=== PATIENT | female | born 1965 | race Caucasian/White ===

== ENCOUNTER 2018-07-22 23:06 | Inpatient (IN) ==
[2018-07-23] MEDS ORDERED: Sod Chloride 0.9% Inj 1,000 ML IV.SIG ONE (05:51)
--- NOTE | 2018-07-23 05:51 | ED ---
HPI General Chief Complaint: Abdominal Pain Stated Complaint: ABD pain/NV blood Time Seen by Provider: 07/23/18 05:51 Source: patient Mode of arrival: ambulatory Limitations: no limitations History of Present Illness HPI narrative: 53-year-old female presents to the emergency department for complaint of abdominal pain with nausea vomiting since evening. Patient is visiting from out of town and states that she thinks she may have eaten some bad seafood. Patient states symptoms has persisted. Patient has not had any coffee-ground emesis but after drinking red Gatorade is concerned she may have had some blood in her emesis. Patient has had normal bowel movements without diarrhea hematochezia or melena. Patient is noted some urinary frequency and urgency and discomfort with urination. No flank pain. Subjective fever and chills. Patient states due to persistent vomiting decided to come to the emergency room for evaluation. Patient denies previous abdominal surgery but has had tubal ligation in the past. Patient denies known history of colitis inflammatory bowel disease Crohn's or diverticulosis/ diverticulitis. No other persons on trip with the patient similarly ill. MD complaint: abdominal pain Onset (ago): day(s) Pain Consistency: constant Location: periumbilical, LLQ and RLQ Severity: severe Severity scale (1-10): 7 Quality: cramping, aching and fullness Radiation: LLQ and RLQ Migration to: no migration Relieving factors: nothing Exacerbating factors: nothing Context: possible food poisoning Associated symptoms: nausea, vomiting, fever and chills Treatments prior to arrival: other (leftover antibiotic doxycycline) Related Data Patient : No Home Medications Medication Instructions Recorded Confirmed ezetimibe [Zetia] 10 mg PO DAILY 07/23/18 07/23/18 Allergies Allergy/AdvReac Type Severity Reaction Status Date / Time prednisolone Allergy Anaphylaxis Verified 07/23/18 00:41 procaine [From Novocain] Allergy Hives Verified 07/23/18 00:41 Sulfa (Sulfonamide Allergy Vomiting Verified 07/23/18 00:41 Antibiotics) Review of Systems ROS: all other systems reviewed are negative PMFSH History History Provided By: Patient (Dyslipidemia tubal ligation) Medical History Medical History Hyperlipidemia (Acute) Social History Social History Substance History: No History of Abuse Second Hand Smoke Exposure: No Smoking Status: Never smoker How Often Do You Have a Drink Containing Alcohol: Monthly or less [facility] within the Last 8 Weeks: No Recent Out of Country Travel within the Last 8 Weeks: No Exam Narrative Exam Narrative: GENERAL: Well-nourished, well-developed patient. SKIN: Focused skin assessment warm/dry. HEAD: Normocephalic. EYES: No scleral icterus. No injection or drainage. NECK: Supple, trachea midline. No JVD or lymphadenopathy. CARDIOVASCULAR: Regular rate and rhythm without murmurs, gallops, or rubs. RESPIRATORY: Breath sounds equal bilaterally. No accessory muscle use. GASTROINTESTINAL: Abdomen soft, bilateral lower quadrant tenderness mild periumbilical tenderness no guarding or rebound, nondistended. MUSCULOSKELETAL: No cyanosis, or edema. BACK: Nontender without obvious deformity. No CVA tenderness. Course Reevaluation(s) Reevaluation #1: Patient updated and agrees to repeat CT and evaluation by surgeon. Consultations Consultation #1: dr padilla requests oral contrast ct and will evaluate patient dr padilla states to admit to him after reviewing repeat ct and will place orders with antibiotic Initial Documented Vital Signs Temperature 99.6 F 07/23/18 00:37 Pulse Rate 101 H 07/23/18 00:37 Respiratory Rate 20 07/23/18 00:37 Blood Pressure 121/60 07/23/18 00:37 Pulse Oximetry 99 07/23/18 00:37 Last Documented Vital Signs Temperature 99.6 F 07/23/18 00:37 Pulse Rate 100 H 07/23/18 07:18 Respiratory Rate 18 07/23/18 07:18 Blood Pressure 145/61 H 07/23/18 07:18 Pulse Oximetry 99 07/23/18 07:19 Sign Out Sign Out Data: Patient Sign Out occurred on 07/23/18 at 07:33. Patient's care was discussed, and care was transferred from Johanny Weller MD to Yeimi Navarro MD. Sign Out Comment: 53-year-old female who has been ill since with nausea multiple episodes of vomiting dehydration and lower abdominal pain. Patient states she has history of intestinal issues and since eating seafood on has not felt well has had subjective fever and chills denies diarrhea or explosive mucoid bloody stools. Patient was taking doxycycline 2 weeks ago for a toe infection and did take a dose of leftover doxycycline on evening. Care will be signed over to oncoming physician for follow-up of pending labs imaging studies and disposition. Last updated by Johanny Weller MD at 07/23/18 07:05 Post-Handoff Eval: signed over to me to follow workup and reevaluate. CT shows possible appendicitis. Patient is tender all over but most in right lower quadrant. Will discuss with general surgery Medical Decision Making MDM Narrative Medical decision making narrative: 53-year-old female with 2 days of abdominal pain nausea vomiting and dysuria with subjective fever and chills; patient patient on anesthesia technician IV access obtained specimens collected and sent for resulting patient administered Zofran and IV fluids At 705 care signed over to oncoming physician Dr. Navarro Medical Screen Exam Complete: Yes Emergency Medical Condition: Yes Differential Diagnosis Differential Diagnosis: Abdominal pain gastritis peptic ulcer disease cholecystitis pancreatitis appendicitis diverticulitis colitis gastroenteritis Medical Records Medical records reviewed: Yes I reviewed the patient's medical records. none Lab Data Lab results reviewed: Yes I reviewed the patient's lab results. Result diagrams: 07/23/18 07:05 07/23/18 07:05 Lab Results 07/23/18 07/23/18 07/23/18 Range/Units 07:05 07:05 08:00 WBC 11.4 H (4.0-11.0) th/mm3 RBC 4.49 (4.00-5.30) mil/mm3 Hgb 13.2 (11.6-15.3) gm/dL Hct 39.4 (35.0-46.0) % MCV 87.8 (80.0-100.0) fL MCH 29.3 (27.0-34.0) pg MCHC 33.4 (32.0-36.0) % RDW 13.3 (11.6-17.2) % Plt Count 204 (150-450) th/mm3 MPV 8.0 (7.0-11.0) fL Neut % (Auto) 88.1 H (16.0-70.0) % Lymph % (Auto) 7.4 L (9.0-44.0) % Gentry % (Auto) 4.3 (0.0-8.0) % Eos % (Auto) 0.0 (0.0-4.0) % Baso % (Auto) 0.2 (0.0-2.0) % Neut # (Auto) 10.1 H (1.8-7.7) th/mm3 Lymph # (Auto) 0.9 L (1.0-4.8) th/mm3 Gentry # (Auto) 0.5 (0.0-0.9) th/mm3 Eos # (Auto) 0.0 (0.0-0.4) th/mm3 Baso # (Auto) 0.0 (0.0-0.2) th/mm3 WBC Differential . Differential Comment Auto diff final Sodium 139 (136-145) meq/L Potassium 3.8 (3.5-5.1) meq/L Chloride 105 (98-107) meq/L Carbon Dioxide 25.2 (21.0-32.0) meq/L Anion Gap 9 (5-15) meq/L BUN 12 (7-18) mg/dL Creatinine 0.79 (0.50-1.00) mg/dL Estimated GFR 76 L (>89) mL/min Random Glucose 123 H (74-106) mg/dL Calcium 8.8 (8.5-10.1) mg/dL Total Bilirubin 0.6 (0.2-1.0) mg/dL AST 19 (15-37) U/L ALT 37 (10-53) U/L Alkaline Phosphatase 60 (45-117) U/L Total Protein 7.7 (6.4-8.2) g/dL Albumin 3.9 (3.4-5.0) g/dL Lipase 61 L (73-393) U/L Urine Color Yellow (Yellw/Straw) Urine Clarity Hazy H (Clear) Urine pH 5.0 (5.0-8.5) Ur Specific Elaine 1.026 (1.002-1.035) Urine Protein Negative (Neg-Trace) mg/dL Urine Glucose (UA) Negative (Negative) mg/dL Urine Ketones Trace H (Negative) mg/dL Urine Occult Blood Small H (Negative) Urine Nitrate Negative (Negative) Urine Bilirubin Negative (Negative) Urine Urobilinogen Less than 2 (Less than 2) mg/dL Ur Leukocyte Esterase Trace H (Negative) Urine RBC 3 (0-3) /hpf Urine WBC 5 (0-5) /hpf Ur Squamous Epith Cells 1 (0-5) /hpf Urine Bacteria Occasional H (None) /hpf Hyaline Casts 1 (0-3) /lpf Urine Mucus Many H (Occasional) /lpf Micro UA Comment Culture not ind Ur Microscopic Review Not Reportable Urine Culture Comments Culture not ind Imaging Data Attestation: I personally reviewed and interpreted this imaging study as follows : Radiologist's impression: Abdomen/Pelvis CT 07/23/18 05:51 CONCLUSION: 1. There are some inflammatory changes and wall thickening within small bowel loops in the pelvis. This could be enteritis 2. Tubular structure in the right lower quadrant believed to be the appendix is somewhat prominent in size but does contain air. This is indeterminate for appendicitis. 3. Hepatic low densities, likely benign. Chest X-Ray 07/23/18 05:51 CONCLUSION: No acute cardiopulmonary disease. Abdomen/Pelvis CT 07/23/18 09:26 CONCLUSION: 1. Inflammatory changes with prominent appendix suggesting the possibility of acute appendicitis. There may be extraluminal air suggesting perforation. No fluid collection or abscess. 2. Wall thickening involving adjacent small bowel loops likely inflammatory. Discharge Plan Discharge Disposition Patient Disposition: 30 Still Patient Discharge Condition Condition: Stable Discharge Details Diagnosis: Acute appendicitis Physicians Team ED Provider: Yeimi Navarro Primary Care Provider: UNKNOWN, Rxs /Orders / Referrals /Forms Prescriptions: No Action ezetimibe [Zetia] 10 mg Tablet 10 mg PO DAILY RF: 0 Discharge Interventions Interventions: Vital Signs Last Done: 07/23/18 07:18 Status ED Status: Admitted Patient
[2018-07-23 07:25] LABS: Baso % (Auto) 0.2 % (0.0-2.0); Hematocrit 39.4 % (35.0-46.0); Hemoglobin 13.2 gm/dL (11.6-15.3); Lymph # (Auto) 0.9 th/mm3 (1.0-4.8); Lymph % (Auto) 7.4 % (9.0-44.0); Mean Corpuscular HGB Conc 33.4 % (32.0-36.0); Mean Corpuscular Hemoglobin 29.3 pg (27.0-34.0); Mean Corpuscular Volume 87.8 fL (80.0-100.0); Mono # (Auto) 0.5 th/mm3 (0.0-0.9); Mono % (Auto) 4.3 % (0.0-8.0); Neut # (Auto) 10.1 th/mm3 (1.8-7.7); Neut % (Auto) 88.1 % (16.0-70.0); Platelet Count 204 th/mm3 (150-450); Red Blood Count 4.49 mil/mm3 (4.00-5.30); Red Cell Distribution Width 13.3 % (11.6-17.2); White Blood Count 11.4 th/mm3 (4.0-11.0)
[2018-07-23 07:44] LABS: Alanine Aminotransferase 37 U/L (10-53); Albumin 3.9 g/dL (3.4-5.0); Anion Gap 9 meq/L (5-15); Aspartate Aminotransferase 19 U/L (15-37); Blood Urea Nitrogen 12 mg/dL (7-18); Calcium 8.8 mg/dL (8.5-10.1); Carbon Dioxide 25.2 meq/L (21.0-32.0); Chloride 105 meq/L (98-107); Glomerular Filtration Rate 76 mL/min (>89); Glucose,Random 123 mg/dL (74-106); Lipase 61 U/L (73-393); Potassium 3.8 meq/L (3.5-5.1); Sodium 139 meq/L (136-145)
--- NOTE | 2018-07-23 07:44 | XR ---
EXAM DATE: 07/23/2018 7:41 AM EDT AGE/SEX: 53 years / Female INDICATIONS: Lower chest, upper abdomen pain. Nausea and vomiting for the past two days. CLINICAL DATA: This is the patient's initial encounter. Patient reports that signs and symptoms have been present for 2 days and indicates a pain score of 10/10. MEDICAL/SURGICAL HISTORY: Hypercholesterolemia. None. COMPARISON: No prior exams available for comparison. FINDINGS: A single AP view of the chest demonstrates the lungs to be symmetrically aerated without evidence of mass, infiltrate or effusion. The cardiomediastinal contours are unremarkable. Osseous structures a re intact. CONCLUSION: No acute cardiopulmonary disease. Electronically signed by: Rubén Cruz MD 07/23/2018 7:43 AM EDT
[2018-07-23 07:47] LABS: Alkaline Phosphatase 60 U/L (45-117); Total Protein 7.7 g/dL (6.4-8.2)
[2018-07-23 08:28] LABS: Bacteria,Urine Occasional /hpf; Bilirubin,Urine Negative (Negative); Color,Urine Yellow (Yellw/Straw); Glucose,Urine (UA) Negative (Negative); Hyaline Casts,Urine 1 /lpf (0-3); Leukocyte Esterase,Urine Trace (Negative); Mucus,Urine Many /lpf (Occasional); Nitrite,Urine Negative (Negative); Specific Gravity,Urine 1.026 (1.002-1.035); Squamous Epithelial Cell,Urine 1 /hpf (0-5)
[2018-07-23 08:29] LABS: Clarity,Urine Hazy (Clear)
--- NOTE | 2018-07-23 08:43 | CT ---
EXAM DATE: 07/23/2018 8:27 AM EDT AGE/SEX: 53 years / Female INDICATIONS: Lower abdomen pain with nausea and vomiting for 2 days CLINICAL DATA: This is the patient's initial encounter. Patient reports that signs and symptoms have been present for 2 days and indicates a pain score of 8/10. MEDICAL/SURGICAL HISTORY: None. Tubal ligation. ORAL CONTRAST: No oral contrast ingested. RADIATION DOSE: 7.35 CTDI (mGy) COMPARISON: No prior exams available for comparison. TECHNIQUE: Multiple contiguous axial images were obtained through the abdomen and pelvis following b olus infusion of 97 ml Omnipaque 350 (iohexol) nonionic water-soluble contrast as a single exam dos e. No oral contrast ingested. Using automated exposure control and adjustment of the mA and/or kV ac cording to patient size, radiation dose was kept as low as reasonably achievable to obtain optimal di agnostic quality images. DICOM format image data is available electronically for review and comparis on. FINDINGS: Lower Lungs: The lung bases are clear Liver: The liver has a homogeneous density with 1.7 cm low-density lesion in the right lobe the liver . Smaller low-density lesion also seen. There is no dilation of the biliary tree. Spleen: Homogeneous density without enlargement. Pancreas: Unremarkable without mass or calcification. Kidneys: Normal in size and shape. No evidence of mass or hydronephrosis. Adrenal Glands: Unremarkable. Aorta: The aorta and proximal iliac vessels are grossly unremarkable without aneurysmal dilation. Bowel/Mesentery: Lack of oral contrast limits evaluation. Tubular structure in the right lower quadr ant believed to be the appendix is somewhat prominent in size but does contain air. The diameter is 1 1 mm. There are some inflammatory changes in the pelvis and wall thickening within adjacent small bow el loops. Abdominal Wall: Intact. Retroperitoneum: No evidence of adenopathy in the retrocrural, para-aortic, or deep pelvic regions. Bladder: Contours are smooth. Reproductive Organs: No abnormal masses or calcifications seen. Trace pelvic free fluid. Inguinal: The inguinal region is unremarkable without evidence of adenopathy. Bony Structures: Unremarkable. CONCLUSION: 1. There are some inflammatory changes and wall thickening within small bowel loops in the pelvis. T his could be enteritis 2. Tubular structure in the right lower quadrant believed to be the appendix is somewhat prominent i n size but does contain air. This is indeterminate for appendicitis. 3. Hepatic low densities, likely benign. Electronically signed by: Rubén Cruz MD 07/23/2018 8:42 AM EDT
[2018-07-23] MEDS ORDERED: Diatrizoate Meglum/Diatrizoate Sod Liq 9 ML UDC PO ONE (09:45)
[2018-07-23] MEDS ORDERED: Phenylephrine/NS 1000 MCG/10ML Syringe IV.PUSH ONE (12:00)
[2018-07-23] MEDS ORDERED: Glycopyrrolate Inj 1 MG/5 ML Syringe IV.PUSH ONE (12:00)
[2018-07-23] MEDS ORDERED: Neostigmine Inj 5 MG/5 ML Syringe IV.PUSH ONE (12:00)
[2018-07-23] MEDS ORDERED: Lidocaine PF 1% Inj 5 ML Syringe INFILTRATN ONE (12:00)
--- NOTE | 2018-07-23 12:39 | CT ---
EXAM DATE: 07/23/2018 12:31 PM EDT AGE/SEX: 53 years / Female INDICATIONS: Lower abdomen pain with nausea and vomiting for 2 days CLINICAL DATA: This is the patient's subsequent encounter. Patient reports that signs and symptoms h ave been present for 2 days and indicates a pain score of 8/10. MEDICAL/SURGICAL HISTORY: None. Tubal ligation. RADIATION DOSE: 8.56 CTDI (mGy) [place] [facility] [place]AST, 07/23/2018. . TECHNIQUE: Multiple contiguous axial images were obtained through the abdomen. Images were obtained using multiple row detector helical technique. Using automated exposure control and adjustment of the mA and/or kV according to patient size, radiation dose was kept as low as reasonably achievable to o btain optimal diagnostic quality images. DICOM format image data is available electronically for rev iew and comparison. FINDINGS: Lower Lungs: The visualized lower lungs are clear. Liver: The liver has a homogeneous density without space-occupying lesion. There is no dilation of th e biliary tree. Spleen: Homogeneous density without enlargement. Pancreas: Unremarkable without mass or calcification. Kidneys: Normal in size and shape. No evidence of mass or hydronephrosis. Adrenal Glands: Unremarkable. Aorta: The aorta and proximal iliac vessels are grossly unremarkable without aneurysmal dilation. Bowel/Mesentery: There are inflammatory changes in the right lower quadrant. The appendix is promine nt measuring 12 mm. Minimal air noted. There also appears to be some extraluminal air suggesting the possibility of perforation. There is wall thickening of adjacent ileal bowel loops. There is contrast within the stomach and small bowel. Abdominal Wall: Intact. Retroperitoneum: No evidence of adenopathy in the retrocrural, para-aortic, or deep pelvic regions. Bladder: Contours are smooth. Reproductive Organs: No abnormal masses or calcifications seen. Inguinal: The inguinal region is unremarkable without evidence of adenopathy. Bony Structures: Unremarkable. CONCLUSION: 1. Inflammatory changes with prominent appendix suggesting the possibility of acute appendicitis. Th ere may be extraluminal air suggesting perforation. No fluid collection or abscess. 2. Wall thickening involving adjacent small bowel loops likely inflammatory. Electronically signed by: Rubén Cruz MD 07/23/2018 12:38 PM EDT
[2018-07-23] MEDS: Ketorolac Inj 30 MG/ML (IVP) Vial IV.PUSH PRN ×2 (13:10→20:30)
[2018-07-23] MEDS: Piperacil/Tazo 3.375 GM Premix 50 ML IV.SIG SCH ×2 (14:58→22:41)
--- NOTE | 2018-07-23 15:04 | P.HPGS ---
History of Present Illness Service: General Surgery Primary Care Physician: UNKNOWN History of Present Illness: 53 yo F developed mild abdominal pain two days ago associated with nausea. Yesterday the pain progressed inseverity and she developed emesis. Last night she presented to the ED. She has had chills. pain is primarily in the lower abdomen. WBC is 11,000. CT a/p with IV no oral contrast showed dilated appendix and thickened small bowel loops. I requested oral contrasted CT. This was reviewed by me with DR. Cruz and appears to likely be appendicitis possibly with microperforation. The patient has nausea with many medications and requests as little narcotics as possible. PSH includes unilateral salpingectomy due to ectopic . - Diagnosis (1) Acute appendicitis Inpatient Certification: I certify that the inpatient services were ordered in accordance with Medicare regulations governing the order. This includes certification that hospital inpatient services are reasonable and necessary and in the case of services not specified as inpatient-only under 42 CFR 419.22(n), that they are appropriately provided as inpatient services in accordance to with the 2-midnight benchmark under 43 CFR 412.3(e) Estimated Total Length of Stay (Days): 2 Plans for Post Hospital Care: Home Review of Systems All other systems reviewed negative except as stated in HPI PMFSH - History History Provided By: Patient (Dyslipidemia tubal ligation) - Medical History Medical History: Medical History (Last Updated 07/23/18 @ 00:39 by Brent Mclaughlin) Hyperlipidemia - Tobacco History Second Hand Smoke Exposure: No Smoking Status: Never smoker - Alcohol History How Often Do You Have a Drink Containing Alcohol: Monthly or less - Substance Use History Substance History: No History of Abuse - Travel History Recent Travel in the [place] Within the Last 8 Weeks: No Recent Travel Out of the Country Within the Last 8 Weeks: No - Immunization History Tetanus Immunization: <5 Years Hx Influenza Vaccine This Season: No Medications and Allergies Active Medications: Active Medications Lactated Ringer's (Lr 1000 Ml Inj) 1,000 mls @ 125 mls/hr IV.CONT .Q8H JERMAINE Last Admin: 07/23/18 14:42 Dose: 125 mls/hr Piperacillin/Tazobactam/Dextrose (Zosyn 3.375 Gm Premix) 50 mls @ 100 mls/hr IV.SIG Q6H JERMAINE Ketorolac Tromethamine (Toradol Inj) 30 mg IV.PUSH Q6H PRN PRN Reason: Pain 1-10 Stop: 07/28/18 12:52 Last Admin: 07/23/18 13:10 Dose: 30 mg Sodium Chloride (Ns Flush) 2 ml IV.FLUSH PRN PRN PRN Reason: FLUSH AFTER USING IV ACCESS Last Admin: 07/23/18 09:59 Dose: 2 ml Sodium Chloride (Ns Flush) 2 ml IV.FLUSH BID JERMAINE Sodium Chloride (Ns Flush) 2 ml IV.FLUSH PRN PRN PRN Reason: FLUSH AFTER USING IV ACCESS Allergies Allergy/AdvReac Type Severity Reaction Status Date / Time prednisolone Allergy Anaphylaxis Verified 07/23/18 00:41 procaine [From Novocain] Allergy Hives Verified 07/23/18 00:41 Sulfa (Sulfonamide Allergy Vomiting Verified 07/23/18 00:41 Antibiotics) Home Medications Medication Instructions Recorded Confirmed Type ezetimibe [Zetia] 10 mg PO DAILY 07/23/18 07/23/18 History Exam Vital signs: Vital Signs 07/23/18 00:37 07/23/18 07:18 07/23/18 07:19 Temperature 99.6 F Pulse Rate 101 H 100 H Respiratory Rate 20 18 Blood Pressure 121/60 145/61 H Pulse Oximetry 99 99 99 07/23/18 12:53 Temperature Pulse Rate 102 H Respiratory Rate 16 Blood Pressure 130/62 Pulse Oximetry 98 Intake & Output 07/22/18 07/23/18 07/23/18 18:59 06:59 18:59 Intake Total 1000 / 1000 Balance 1000 / 1000 Weight 72.575 kg Intake: IV 1000 / 1000 NS Inj 1,000 ML @ Wide Open IV. 1000 / 1000 SIG BOLUS ONE Rx#:[id number] Narrative: GENERAL: Awake and alert. No acute distress. Cooperative. HEAD: Normocephalic. Atraumatic. EYES: Pupils equal round and reactive to light bilaterally. No scleral icterus. ENT: Moist oral mucosa. NECK: Trachea midline. CHEST: Nonlabored breathing. No respiratory distress. CARDIOVASCULAR: Regular rate and rhythm. ABDOMEN: Nondistended, soft. Rebound ttp suprapubic, RLQ, periumbilical. EXTREMITIES: No cyanosis or edema. SKIN: Warm, diaphoretic, nonjaundiced. Results - Results CT scan - abdomen: report reviewed, image reviewed CT scan - pelvis: report reviewed, image reviewed Caprini VTE Risk Assessment Caprini VTE Risk Assessment: No/Low Risk (score <= 1) Caprini Risk Assessment Model: Point Value = 1 Point Value = 2 Point Value = 3 Point Value = 5 Age 41-60 Minor surgery BMI > 25 kg/m2 Swollen legs Varicose veins or History of unexplained or recurrent spontaneous Oral contraceptives or hormone replacement Sepsis (< 1 month) Serious lung disease, including pneumonia (< 1 month) Abnormal pulmonary function Acute myocardial infarction Congestive heart failure (< 1 month) History of inflammatory bowel disease Medical patient at bed rest Age 61-74 Arthroscopic surgery Major open surgery (> 45 min) Laparoscopic surgery (> 45 min) Malignancy Confined to bed (> 72 hours) Immobilizing plaster cast Central venous access Age >= 75 History of VTE Family history of VTE Factor V Leiden Prothrombin [id number] Lupus anticoagulant Anticardiolipin antibodies Elevated serum homocysteine Heparin-induced thrombocytopenia Other congenital or acquired thrombophilia Stroke (< 1 month) Elective arthroplasty Hip, pelvis, or leg fracture Acute spinal cord injury (< 1 month) Prophylaxis Regimen: Total Risk Factor Score Risk Level Prophylaxis Regimen 0-1 Low Early ambulation 2 Moderate Order ONE of the following: *Sequential Compression Device (SCD) *Heparin 5000 units SQ BID 3-4 Higher Order ONE of the following medications: *Heparin 5000 units SQ TID *Enoxaparin/Lovenox 40 mg SQ daily (WT < 150 kg, CrCl > 30 mL/min) *Enoxaparin/Lovenox 30 mg SQ daily (WT < 150 kg, CrCl > 10-29 mL/min) *Enoxaparin/Lovenox 30 mg SQ BID (WT < 150 kg, CrCl > 30 mL/min) AND/OR *Sequential Compression Device (SCD) 5 or more Highest Order ONE of the following medications: *Heparin 5000 units SQ TID (Preferred with Epidurals) *Enoxaparin/Lovenox 40 mg SQ daily (WT < 150 kg, CrCl > 30 mL/min) *Enoxaparin/Lovenox 30 mg SQ daily (WT < 150 kg, CrCl > 10-29 mL/min) *Enoxaparin/Lovenox 30 mg SQ BID (WT < 150 kg, CrCl > 30 mL/min) AND *Sequential Compression Device (SCD) Assessment and Plan - Assessment (1) Acute appendicitis Code(s): K35.80 - Unspecified acute appendicitis Status: Acute Qualifiers: Acute appendicitis type: unspecified acute appendicitis type Qualified Code (s): K35.80 - Unspecified acute appendicitis - Plan Based on evaluation and imaging it appears she likely has acute appendicitis possibly with perforation. I recommend to proceed to OR for laparoscopic appendectomy, possible open. Discussed case in detail with the patient and her friend and she desires to proceed. Will plan to use toradol for pain due to severe nausea with most narcotics.
[2018-07-23] MEDS ORDERED: Ketamine Inj 50 MG/5 ML Syringe IV.PUSH ONE (17:15)
[2018-07-23] MEDS ORDERED: Scopalamine 1.5 MG Patch T-DERMAL ONE (17:18)
[2018-07-23] MEDS ORDERED: Bupivacaine/Epinephrine 0.5% Inj 50 ML Vial ONE (18:14)
[2018-07-23] MEDS ORDERED: Promethazine 25 MG Supp RECTAL PRN (19:16)
--- NOTE | 2018-07-23 19:25 | P.OP ---
- Preoperative Diagnosis (1) Acute appendicitis - Postoperative Diagnosis (1) Acute appendicitis with generalized peritonitis Date of procedure: 07/23/18 Procedure: Laparoscopic appendectomy with washout and drain placement Anesthesia: KOURTNEY Surgeon: Christiano Finn MD Station Engineer Main Line: Dougie FALCON Estimated blood loss (mL): 10 Pathology: other (appendix) Operation and Findings: EBL: 5 cc Complications: None apparent Operative findings: Diffuse peritonitis primarily in lower abdomen with pus in pelvis, RLQ, and RUQ. Appendix with obvious perforation and visible hole. Procedure in detail: The patient was taken to the operating room placed in the supine position with left arm tucked. General endotracheal anesthesia was induced and the abdomen was prepped and draped in usual sterile fashion. Surgical timeout was performed to verify correct patient procedure and site. Perioperative antibiotics were administered as necessary. Local anesthetic was injected in the skin and subcutaneous tissue inferior to the umbilicus and a 5 mm incision made. Using the 5 mm Optiview trocar with laparoscope the abdomen was directly entered. The abdomen was then insufflated to 15 mmHg with CO2 gas which the patient tolerated well. The patient was then placed in Trendelenburg position and turned slightly to the left. A 12 mm port was placed under laparoscopic visualization in the left lower abdomen and another 5 mm port in the suprapubic area. The was immediately visualized pus in the abdomen. Much of the small bowel is inflamed with exudate and some adhesions and pus between loops of small bowel. The appendix is inflamed and adherent to the pelvic sidewall. It is short and the tip may be gangrenous and there is obvious perforation. Adhesions are gently broken up. The mesoappendix was taken down with the Harmonic scalpel. Two #1 PDS Endoloops were placed at the base the appendix and the appendix transected with Harmonic scalpel. It was then removed using an Endo Catch bag. The appendiceal stump was intact with no leakage. The entire abdomen was copiously irrigated paying special attention to the pelvis, RLQ, and RUQ. A 19 Fr round drain placed through infraumbiical incision into RLQ and pelvis. The abdomen was allowed to desufflate. The fascia at the 12 mm port site was closed with a 0 Vicryl sutures. Skin closed with subcuticular Monocryl as well as Dermabond. The patient tolerated the procedure well was extubated and taken to PACU in stable condition.
[2018-07-23] MEDS ORDERED: fentaNYL Citrate Inj 100 MCG/2 ML Ampul ONE (19:27)
[2018-07-23] MEDS ORDERED: HYDROmorphone PF Inj 2 MG/ML Vial IV.PUSH PRN (20:00)
[2018-07-24] MEDS: Piperacil/Tazo 3.375 GM Premix 50 ML IV.SIG SCH ×4 (01:59→20:47)
[2018-07-24] MEDS: Ketorolac Inj 30 MG/ML (IVP) Vial IV.PUSH PRN ×4 (02:00→20:46)
[2018-07-24 06:28] LABS: Baso % (Auto) 0.1 % (0.0-2.0); Eos % (Auto) 0.1 % (0.0-4.0); Hematocrit 34.1 % (35.0-46.0); Hemoglobin 11.4 gm/dL (11.6-15.3); Lymph # (Auto) 1.2 th/mm3 (1.0-4.8); Lymph % (Auto) 16.1 % (9.0-44.0); Mean Corpuscular HGB Conc 33.5 % (32.0-36.0); Mean Corpuscular Hemoglobin 29.5 pg (27.0-34.0); Mean Corpuscular Volume 87.9 fL (80.0-100.0); Mean Platelet Volume 8.5 fL (7.0-11.0); Mono # (Auto) 0.2 th/mm3 (0.0-0.9); Mono % (Auto) 3.1 % (0.0-8.0); Neut # (Auto) 5.9 th/mm3 (1.8-7.7); Neut % (Auto) 80.6 % (16.0-70.0); Platelet Count 157 th/mm3 (150-450); Red Blood Count 3.88 mil/mm3 (4.00-5.30); Red Cell Distribution Width 13.3 % (11.6-17.2); White Blood Count 7.4 th/mm3 (4.0-11.0)
--- NOTE | 2018-07-24 10:45 | P.PN ---
Subjective Interval history: pt states pain better no flatus Physical Exam Vital signs: Vital Signs 07/23/18 12:53 07/23/18 15:17 07/23/18 19:25 Temperature 98.4 F 98.3 F Pulse Rate 102 H 98 H 98 H Respiratory Rate 16 16 16 Blood Pressure 130/62 135/56 L 117/73 Pulse Oximetry 98 98 100 07/23/18 19:45 07/23/18 20:00 07/23/18 20:15 Temperature 98.5 F 98.1 F Pulse Rate 89 85 77 Respiratory Rate 18 18 16 Blood Pressure 112/55 L 134/60 132/66 Pulse Oximetry 100 98 100 07/24/18 00:00 07/24/18 04:00 07/24/18 08:00 Temperature 98.3 F 98.4 F 97.7 F Pulse Rate 64 64 68 Respiratory Rate 16 16 18 Blood Pressure 118/55 L 98/57 L 116/58 L Pulse Oximetry 98 100 98 Intake & Output 07/23/18 07/24/18 07/24/18 18:59 06:59 18:59 Intake Total 2049 2450 / 2450 50 / 50 Output Total 1200 / 1200 Balance 2049 1250 / 1250 50 / 50 Weight 75.6 kg 79.4 kg Intake: IV 2049 1150 / 1150 50 / 50 LR 1000 mL Inj 1,000 ML @ 125 1000 / 1000 1000 / 1000 mls/hr IV.CONT .Q8H [facility] Rx#: [id number] Ofirmev Inj 1,000 mg In 100 ml 100 / 100 @ 400 mls/hr IV.SIG ONCE ONE Rx #:[id number] Zosyn 3.375 GM Premix 50 ML @ 50 / 50 50 / 50 50 / 50 100 mls/hr IV.SIG Q6H [facility] Rx#: [id number] NS Inj 1,000 ML @ Wide Open IV. 1000 / 1000 SIG BOLUS ONE Rx#:[id number] Anesthesia Amount 800 / 800 Other 500 / 500 Output: Urine 700 / 700 Estimated Blood Loss 20 / 20 Wound Drainage 480 / 480 # 1 Abdomen 480 / 480 Other: Other Intake Source Saline Solution # Voids 1 Weight On Admission 72.575 kg - Constitutional no acute distress - Routine Abdominal Exam Present: soft, tenderness, distended, drain Results - Labs CBC & Chem 7: 07/24/18 05:15 07/23/18 07:05 Laboratory Results - last 24 hr 07/24/18 05:15 WBC 7.4 RBC 3.88 L Hgb 11.4 L Hct 34.1 L MCV 87.9 MCH 29.5 MCHC 33.5 RDW 13.3 Plt Count 157 MPV 8.5 Neut % (Auto) 80.6 H Lymph % (Auto) 16.1 [place] % (Auto) 3.1 Eos % (Auto) 0.1 Baso % (Auto) 0.1 Neut # (Auto) 5.9 Lymph # (Auto) 1.2 [place] # (Auto) 0.2 Eos # (Auto) 0.0 Baso # (Auto) 0.0 WBC Differential . Differential Comment Auto diff final - Imaging Impressions Abdomen/Pelvis CT 07/23/18 09:26 CONCLUSION: 1. Inflammatory changes with prominent appendix suggesting the possibility of acute appendicitis. There may be extraluminal air suggesting perforation. No fluid collection or abscess. 2. Wall thickening involving adjacent small bowel loops likely inflammatory. Assessment and Plan - Assessment (1) Acute appendicitis Code(s): K35.80 - Unspecified acute appendicitis Status: Acute Plan: cont clears cont abx oob ambulate (1) Acute appendicitis Qualifiers: Acute appendicitis type: unspecified acute appendicitis type Qualified Code(s ): K35.80 - Unspecified acute appendicitis
[2018-07-25] MEDS: Piperacil/Tazo 3.375 GM Premix 50 ML IV.SIG SCH ×4 (02:15→19:56)
[2018-07-25] MEDS: Ketorolac Inj 30 MG/ML (IVP) Vial IV.PUSH PRN ×4 (02:16→20:28)
--- NOTE | 2018-07-25 13:31 | P.PNGS ---
Subjective Interval history: Had loose bowel movt and some flatus. Also with mild nausea and belching. Physical Exam Vital signs: Vital Signs 07/24/18 15:32 07/24/18 20:00 07/25/18 00:00 Temperature 98.0 F 99.1 F 99.5 F Pulse Rate 76 76 84 Respiratory Rate 16 18 18 Blood Pressure 118/58 L 118/59 L 125/58 L Pulse Oximetry 95 94 L 92 L 07/25/18 04:00 07/25/18 08:00 07/25/18 12:00 Temperature 98.3 F 98.5 F 97.8 F Pulse Rate 73 74 Respiratory Rate 17 17 Blood Pressure 143/62 H 111/65 Pulse Oximetry 95 97 Intake & Output 07/24/18 07/25/18 07/25/18 18:59 06:59 18:59 Intake Total 1150 / 1150 2100 / 2100 50 / 50 Output Total 90 / 90 100 / 100 Balance 1060 / 1060 2000 / 2000 50 / 50 Weight 81.7 kg Intake: IV 1150 / 1150 2099 / 2100 50 / 50 LR 1000 mL Inj 1,000 ML @ 125 1000 / 1000 2000 / 2000 mls/hr IV.CONT .Q8H [facility] Rx#: [id number] Zosyn 3.375 GM Premix 50 ML @ 150 / 150 100 / 100 50 / 50 100 mls/hr IV.SIG Q6H [facility] Rx#: [id number] Output: Wound Drainage 90 / 90 100 / 100 # 1 Abdomen 90 / 90 100 / 100 Other: # Voids 1 Narrative: NAD Abd: mod distention, inc c/d/i, vero ss Assessment and Plan - Assessment (1) Acute appendicitis Code(s): K35.80 - Unspecified acute appendicitis Status: Acute - Plan POD 2 lap appy for generalized peritonitis. Stable. Ileus. Fulls. D/c when bowel fxn fully returns. Possibly in two days. (1) Acute appendicitis Qualifiers: Acute appendicitis type: unspecified acute appendicitis type Qualified Code(s ): K35.80 - Unspecified acute appendicitis
[2018-07-25] MEDS: Enoxaparin Inj 40 MG/0.4 ML Syringe SQ SCH (14:28)
[2018-07-26] MEDS: Piperacil/Tazo 3.375 GM Premix 50 ML IV.SIG SCH ×4 (01:27→21:18)
[2018-07-26] MEDS: Ketorolac Inj 30 MG/ML (IVP) Vial IV.PUSH PRN ×4 (02:35→21:18)
[2018-07-26] MEDS: Enoxaparin Inj 40 MG/0.4 ML Syringe SQ SCH (09:03)
--- NOTE | 2018-07-26 12:30 | P.PNGS ---
Subjective Interval history: Some flatus but also belching. Has more nausea, pain and bloating. Physical Exam Vital signs: Vital Signs 07/25/18 16:00 07/25/18 20:35 07/26/18 00:30 Temperature 97.6 F 97.9 F 98.0 F Pulse Rate 65 78 76 Respiratory Rate 17 18 16 Blood Pressure 135/60 148/67 H 137/62 Pulse Oximetry 95 95 97 07/26/18 04:57 07/26/18 08:00 07/26/18 12:00 Temperature 98.3 F 97.1 F L 98.1 F Pulse Rate 72 73 65 Respiratory Rate 18 16 16 Blood Pressure 142/72 H 144/63 H 149/66 H Pulse Oximetry 97 92 L 97 Intake & Output 07/25/18 07/26/18 07/26/18 18:59 06:59 18:59 Intake Total 2900 / 2900 1680 / 1680 50 / 50 Output Total 540 / 540 330 / 330 Balance 2360 / 2360 1350 / 1350 50 / 50 Weight 82 kg Intake: IV 1100 / 1100 1100 / 1100 50 / 50 LR 1000 mL Inj 1,000 ML @ 125 1000 / 1000 1000 / 1000 mls/hr IV.CONT .Q8H [facility] Rx#: [id number] Zosyn 3.375 GM Premix 50 ML @ 100 / 100 100 / 100 50 / 50 100 mls/hr IV.SIG Q6H [facility] Rx#: [id number] Oral 1800 / 1800 580 / 580 Output: Wound Drainage 540 / 540 330 / 330 # 1 Abdomen 540 / 540 330 / 330 Other: # Voids 4 4 # Bowel Movements 1 Narrative: NAD Abd: soft, distended. JULIOCESAR high volume serous output Assessment and Plan - Assessment (1) Acute appendicitis Code(s): K35.80 - Unspecified acute appendicitis Status: Acute - Plan POD 3 lap appy for generalized peritonitis. Stable. Ileus persists. Clears. She refuses lovenox so I stopped it. CHange to D51/2NS. Await return of bowel function. (1) Acute appendicitis Qualifiers: Acute appendicitis type: unspecified acute appendicitis type Qualified Code(s ): K35.80 - Unspecified acute appendicitis
[2018-07-26] MEDS: KCL 20 mEq/D5W/NaCl 0.45% Inj 1,000 ML IV.CONT SCH (14:09)
[2018-07-27] MEDS: KCL 20 mEq/D5W/NaCl 0.45% Inj 1,000 ML IV.CONT SCH ×3 (01:07→17:42)
[2018-07-27] MEDS: Ketorolac Inj 30 MG/ML (IVP) Vial IV.PUSH PRN ×4 (02:56→21:40)
[2018-07-27] MEDS: Piperacil/Tazo 3.375 GM Premix 50 ML IV.SIG SCH ×5 (02:57→21:40)
--- NOTE | 2018-07-27 12:44 | P.PNGS ---
Subjective Interval history: Pain controlled. Less nausea. More flatus and some liquid stool. Still bloated but a little less. Physical Exam Vital signs: Vital Signs 07/26/18 16:00 07/26/18 20:00 07/27/18 00:00 Temperature 98.0 F 98.3 F 98.1 F Pulse Rate 70 64 76 Respiratory Rate 17 21 17 Blood Pressure 140/73 150/73 H 128/61 Pulse Oximetry 95 97 95 07/27/18 03:09 07/27/18 08:00 07/27/18 12:00 Temperature 98.5 F 97.9 F 97.9 F Pulse Rate 69 66 60 Respiratory Rate 18 18 17 Blood Pressure 138/88 148/80 H 154/72 H Pulse Oximetry 94 L 93 L 99 Intake & Output 07/26/18 07/27/18 07/27/18 18:59 06:59 18:59 Intake Total 2400 / 2400 1900 / 1900 2049 Output Total 595 / 595 60 / 60 Balance 1805 / 1805 1900 / 1900 1989 / 1989 Weight 81.6 kg Intake: IV 1100 / 1100 1100 / 1100 2049 / 2049 D5W/1/2NS + KCL 20 mEq Inj 1, 1000 / 1000 2000 / 2000 000 ML @ 100 mls/hr IV.CONT . Q10H [facility] Rx#:[id number] LR 1000 mL Inj 1,000 ML @ 125 1000 / 1000 mls/hr IV.CONT .Q8H [facility] Rx#: [id number] Zosyn 3.375 GM Premix 50 ML @ 100 / 100 100 / 100 50 / 50 100 mls/hr IV.SIG Q6H [facility] Rx#: [id number] Oral 1300 / 1300 800 / 800 Output: Wound Drainage 595 / 595 60 / 60 # 1 Abdomen 595 / 595 60 / 60 Other: # Voids 4 5 # Bowel Movements 0 Narrative: NAD Abd: soft, moderate distention, inc c/d/i, JULIOCESAR serous Assessment and Plan - Assessment (1) Acute appendicitis Code(s): K35.80 - Unspecified acute appendicitis Status: Acute - Plan POD 4 lap appy for generalized peritonitis. Stable. Ileus persists. Soft diet. She refuses lovenox so I stopped it. Decrease IVF. Await full return of bowel function. Cont zosyn. (1) Acute appendicitis Qualifiers: Acute appendicitis type: unspecified acute appendicitis type Qualified Code(s ): K35.80 - Unspecified acute appendicitis
[2018-07-28] MEDS: Piperacil/Tazo 3.375 GM Premix 50 ML IV.SIG SCH ×3 (02:11→14:13)
[2018-07-28] MEDS: Ketorolac Inj 30 MG/ML (IVP) Vial IV.PUSH PRN ×2 (04:13→10:27)
[2018-07-28 06:04] LABS: Baso % (Auto) 0.3 % (0.0-2.0); Eos # (Auto) 0.3 th/mm3 (0.0-0.4); Eos % (Auto) 5.3 % (0.0-4.0); Hematocrit 37.5 % (35.0-46.0); Hemoglobin 12.7 gm/dL (11.6-15.3); Mean Corpuscular HGB Conc 33.8 % (32.0-36.0); Mean Corpuscular Hemoglobin 29.1 pg (27.0-34.0); Mean Corpuscular Volume 86.3 fL (80.0-100.0); Mean Platelet Volume 7.8 fL (7.0-11.0); Mono # (Auto) 0.4 th/mm3 (0.0-0.9); Mono % (Auto) 7.4 % (0.0-8.0); Neut # (Auto) 3.3 th/mm3 (1.8-7.7); Platelet Count 267 th/mm3 (150-450); Red Blood Count 4.34 mil/mm3 (4.00-5.30); Red Cell Distribution Width 12.8 % (11.6-17.2)
[2018-07-28 06:16] LABS: Anion Gap 9 meq/L (5-15); Blood Urea Nitrogen 3 mg/dL (7-18); Calcium 8.4 mg/dL (8.5-10.1); Carbon Dioxide 26.8 meq/L (21.0-32.0); Chloride 106 meq/L (98-107); Glomerular Filtration Rate Greater Than 89 mL/min (>89); Glucose,Random 106 mg/dL (74-106); Potassium 3.4 meq/L (3.5-5.1); Sodium 142 meq/L (136-145)
[2018-07-28] MEDS: KCL 20 mEq/D5W/NaCl 0.45% Inj 1,000 ML IV.CONT SCH (14:13)
--- NOTE | 2018-07-28 17:03 | P.PNGS ---
Subjective Interval history: Tolerating some solid diet. Liquid BMs. No nausea. Physical Exam Vital signs: Vital Signs 07/27/18 20:00 07/28/18 00:00 07/28/18 08:00 Temperature 97.7 F 98.0 F 98.0 F Pulse Rate 65 71 63 Respiratory Rate 17 17 17 Blood Pressure 160/80 H 140/64 169/76 H Pulse Oximetry 98 95 96 07/28/18 12:00 Temperature 97.0 F L Pulse Rate 64 Respiratory Rate 16 Blood Pressure 149/66 H Pulse Oximetry 99 Intake & Output 07/27/18 07/28/18 07/28/18 18:59 06:59 18:59 Intake Total 3500 / 3500 1075 / 1075 1100 / 1100 Output Total 160 / 160 180 / 180 30 / 30 Balance 3340 / 3340 895 / 895 1070 / 1070 Weight 77.8 kg Intake: IV 2099 / 2099 100 / 100 1100 / 1100 D5W/1/2NS + KCL 20 mEq Inj 1, 1999 / 1999 1000 / 1000 000 ML @ 50 mls/hr IV.CONT . Q20H [facility] Rx#:[id number] Zosyn 3.375 GM Premix 50 ML @ 100 / 100 100 / 100 100 / 100 100 mls/hr IV.SIG Q6H [facility] Rx#: [id number] Oral 1400 / 1400 975 / 975 Output: Wound Drainage 160 / 160 180 / 180 30 / 30 # 1 Abdomen 160 / 160 180 / 180 30 / 30 Other: # Voids 4 3 # Bowel Movements 0 1 Narrative: NAD Abd: less distended, inc c/d/i, vero ss. Assessment and Plan - Assessment (1) Acute appendicitis Code(s): K35.80 - Unspecified acute appendicitis Status: Acute - Plan POD 5 lap appy for generalized peritonitis. Stable. Ileus improving. WBC nml. Soft diet. Stop IVF. D/c zosyn start po levaquin/flagyl. Possible dc home tomorrow. (1) Acute appendicitis Qualifiers: Acute appendicitis type: unspecified acute appendicitis type Qualified Code(s ): K35.80 - Unspecified acute appendicitis
[2018-07-28] MEDS: metroNIDAZOLE 500 MG Tablet PO SCH (17:56)
[2018-07-29] MEDS: metroNIDAZOLE 500 MG Tablet PO SCH ×2 (00:48→06:56)
--- NOTE | 2018-07-29 08:14 | P.DS ---
Date of admission: 07/23/18 12:53 Primary care physician: UNKNOWN Brief History from admission: 53 yo F developed mild abdominal pain two days ago associated with nausea. Yesterday the pain progressed inseverity and she developed emesis. Last night she presented to the ED. She has had chills. pain is primarily in the lower abdomen. WBC is 11,000. CT a/p with IV no oral contrast showed dilated appendix and thickened small bowel loops. I requested oral contrasted CT. This was reviewed by me with DR. Cruz and appears to likely be appendicitis possibly with microperforation. The patient has nausea with many medications and requests as little narcotics as possible. PSH includes unilateral salpingectomy due to ectopic . DS: Diagnosis - Discharge Diagnosis (1) Acute appendicitis with generalized peritonitis Status: Acute DS: Medications - Discharge Medications Prescriptions: levofloxacin 750 mg PO DAILY #5 tab metronidazole 500 mg PO Q8H #15 tab ondansetron HCl [Zofran] 4 mg PO Q6H PRN #20 tab PRN Reason: Nausea DS: Summary Hospital Course: Patient had surgery as stated and expected post op ileus. This gradually resolved. WBC normalized and pain controlled. - Time Spent with Patient Total time spent providing and/or coordinating discharge services: Less than 30 minutes - Quality: VTE Deep Vein Thrombosis/Pulmonary Embolism Present on Admission: No Exam Vital signs: Vital Signs 07/28/18 12:00 07/28/18 16:00 07/28/18 20:00 Temperature 97.0 F L 98.2 F 97.6 F Pulse Rate 64 67 68 Respiratory Rate 16 17 17 Blood Pressure 149/66 H 172/77 H 158/72 H Pulse Oximetry 99 97 97 07/29/18 00:00 Temperature 98.0 F Pulse Rate 76 Respiratory Rate 18 Blood Pressure 146/68 H Pulse Oximetry 96 Intake & Output 07/28/18 07/29/18 07/29/18 18:59 06:59 18:59 Intake Total 2099 600 / 600 Output Total 40 / 40 50 / 50 Balance 2059 600 / 600 -50 / -50 Weight 77.8 kg Intake: IV 2099 D5W/1/2NS + KCL 20 mEq Inj 1, 1999 / 1999 000 ML @ 50 mls/hr IV.CONT . Q20H [facility] Rx#:[id number] Zosyn 3.375 GM Premix 50 ML @ 100 / 100 100 mls/hr IV.SIG Q6H [facility] Rx#: [id number] Oral 600 / 600 Output: Wound Drainage 40 / 40 50 / 50 # 1 Abdomen 40 / 40 50 / 50 Other: # Voids 3 Narrative: NAD Abd: soft, mild distention, inc c/d/i, vero serous decreasing output Results Procedures completed during hospitalization: Laparoscopic appendectomy ,washout, drain placement Completed studies during hospitalization: Pending at discharge 07/23/18 07:37 Surgical [PTH] Routine - Impressions ITS Impressions Chest X-Ray 07/23/18 05:51 CONCLUSION: No acute cardiopulmonary disease. Abdomen/Pelvis CT 07/23/18 09:26 CONCLUSION: 1. Inflammatory changes with prominent appendix suggesting the possibility of acute appendicitis. There may be extraluminal air suggesting perforation. No fluid collection or abscess. 2. Wall thickening involving adjacent small bowel loops likely inflammatory. Discharge Plan - Discharge Disposition Patient Disposition: Discharge Home - Discharge Condition Condition: Stable - Discharge Order Discharge Orders: Discharge Order (Routine); Ordered 07/29/18 Ordered By: Christiano Finn - Physicians Team Primary Care Provider: UNKNOWN, Attending Provider: Christiano Finn
[2018-07-29] MEDS ORDERED: levoFLOXacin 750 MG Tablet PO SCH (09:00)
== END 2018-07-29 10:54 | disposition home or self-care (01) ==
LOC: EDBD → NEPC 23:06 → NEDA 07-23 12:53 → N07 07-23 14:38
PROVIDERS: ADMIT Surgery; ATTEND Surgery
PROC: LAPAPPY (ICD-10-PCS; 2018-07-23 17:55)